=== PATIENT | male | born 1995 | race Caucasian/White ===

== ENCOUNTER 2020-11-08 04:05 | Emergency (ER) | payer OTHER, BC ==
[~2020-11-08] VITALS: Ht 170.2 cm; Wt 72.6 kg
== END 2020-11-08 06:29 | disposition home or self-care (01) ==
LOC: ER 04:05
DX: S61.411A Laceration without foreign body of right hand, initial encounter (principal); S09.92XA Unspecified injury of nose, initial encounter; Z23 Encounter for immunization; Y04.0XXA Assault by unarmed brawl or fight, initial encounter
CPT/HCPCS: 12004; 90471; 99283